=== PATIENT | female | born 1955 | race Hispanic/Latino ===

== ENCOUNTER 2016-10-24 10:02 | Day surgery (SDC) | payer OTHER ==
[~2016-10-24] VITALS: Ht 152.4 cm; Wt 101.3 kg
[~2016-10-24 10:02] MED LIST: CARB100C8 PO; CeFAZolin Inj 2 GM in IV Premix 1 EACH IV ONE; Lactated Ringer's 1,000 ML IV SCH; METF1000 PO; QUET50TA PO; minocycline; turmeric
[2016-10-24] MEDS ORDERED: Propofol 10,000 mCg/mL 20 mL Inj ONE (10:03)
[2016-10-24] MEDS ORDERED: fentaNYL-PF 50 mCg/mL 2 mL Inj ONE (10:03)
[2016-10-24] MEDS ORDERED: Lactated Ringer's 1,000 ML IV ONE (10:12)
[2016-10-24 10:40] VITALS: BP 117/63; PULSE 60; RESP 16; O2SAT 100
--- NOTE | 2016-10-24 12:01 | PCM.HPANE ---
Patient Data Surgeon Admitting Provider: Attending Provider:Doris Schaffer DPM Primary Care Physician:Macho Coffey MD Other Provider:Nichol Elizondo Anesthesia Reason for Visit Left Hallux Valgus Ht/WT & BMI Height (Feet): 5 Height (Inches): 0.00 Weight (Kilograms): 101.3 Body Mass Index 43.00 Allergies Coded Allergies: codeine (Verified Allergy, Unknown, 02/10/16) hydrocodone (Verified Allergy, Unknown, 02/10/16) Past Anesthesia History Anesthesia History: Denies:: Abnormal Airway, Anesthesia Reactions, Difficult Intubation, Fam Anesthesia Reaction, Malignant Hyperthermia Diabetes History Hx Diabetes?: Yes Type of Diabetes: Type II Glycemic Control: Oral Medication Current Bedside Blood Glucose: 88 MRSA MRSA: No Medications Hypertension Medication: No Home Meds Incl Beta Daisy: No Reported Medications [minocycline] No Conflict CheckUnknown Dose DAILY 10/23/16 [turmeric] No Conflict CheckUnknown Dose DAILY 10/23/16 Quetiapine Fumarate (Seroquel)50 Mg Wwrchk36 Mg PO BID Ref 0 10/23/16 Carbamazepine 100 Mg Dyttngc25 Mg PO DAILY 10/23/16 Metformin (Glucophage)1,000 Mg Tablet1,000 Mg PO BID Ref 0 10/23/16 Discontinued Reported Medications Quetiapine Fumarate (Seroquel)50 Mg Yedtmn12 Mg PO HS Ref 0 06/15/16 Warfarin Sodium 5 Mg Tablet5 Mg PO DAILY 30 Days Ref 0 03/16/16 Ketoconazole 15 Gm Cream..g.15 Gm TP prn rash 02/10/16 Carbamazepine 200 Mg Eiihsn445 Mg PO q12hrs 12/03/15 Omeprazole 20 Mg Tablet.dr20 Mg PO DAILY Ref 0 12/03/15 Atorvastatin (Lipitor)20 Mg Wfpnyx42 Mg PO every oth hs Ref 0 12/03/15 Nifedipine ER 90 Mg Tab.er.2490 Mg PO DAILY Ref 0 12/03/15 Levothyroxine 112 Mcg Yuztko377 Mcg PO DAILY For Thyroid Replacement Ref 0 12/03/15 Metformin ER 500 Mg [id number] Mg PO BID Ref 0 12/03/15 History HEENT History: Denies:: Abnormal Airway Cataracts Difficult Intubation Dysphagia Glaucoma Hearing Problem Sinus Problem TMJ Hx of Heart Problems?: Yes Cardiovascular History: Positive for:: Thrombophlebitis (hx DVT - IVC filter remains in place, off anticoag one year now) Denies:: AICD Abdominal Aortic Aneurism Atrial Fibrillation Congestive Heart Failure Heart Murmur Hypertension Irregular Heartbeat Pacemaker Peripheral Vascular Rheumatic Fever Hx of Respiratory Problem?: No Respiratory History: Denies:: Asthma COPD Dyspnea Oxygen Administration Pneumonia Tuberculosis Use of C-PAP Machine (refuses sleep study-recommended ) Use of Inhalers / NEBS Hx Neurologic Problems?: Yes Neurological History: Positive for:: Seizures (normal eeg last august- being tapered off tegretol, last seizure 1994) Denies:: CVA Headaches Multiple Sclerosis Parkinson's Disease Hx of GI Problems?: No Gastrointestinal History: Denies:: Cirrhosis Gall Bladder Disease Gastroesphageal Reflux Gastrointestinal Bleeding Heartburn Hepatitis Hiatal Hernia Liver Disease Rectal Bleeding Hx of Problems?: No Genitourinary History: Denies:: Kidney Stones Urinary Tract Infection Female Hx: Denies:: Currently Problems with Breasts? Skin History: Denies:: History Skin Disorders? Pressure Ulcers Hx Musculoskeletal Problems?: Yes Musculoskeletal History: Positive for:: Degenerative Joint Joint Replacement (left shoulder) Musculoskeletal Trauma (left foot current admission problem) Osteoarthritis (left knee- is difficult to straighten) Denies:: Back Injury Fibromyalgia Hx of Psycho/Social Problems?: Yes Psycho Social History: Positive for:: Bipolar Disorder Hx Depression Hx Surgeries?: Yes (left elbow, left shoulder) Hx Any Other Health Problems?: Yes Other History: Denies:: Cancer Thyroid Disease History Blood Transfusions: Positive for:: Accept Blood Products? Denies:: Blood Transfusions Hx Diabetes: YesBedside Blood Glucose: 88 Hx Alcohol Use: NoHx Substance Use: No Smoking Status: Former Smoker Stop/Bang S-Snoring: Do You Snore Loudly: No T-Tired: feel tired, fatigued: No O-Obsered: Observed not breath: No P-Blood Pressure: treated: No B- Body Mass Index > 35 kg/m2: Yes A- Age over 50: Yes N- Neck Large Circumference: Yes G- Gender Male: No RENUKA Total Score: 3 Risk Assessment Category Category 1A: Patient has history of documented sleep apnea, and HAS NOT received any narcotic, sedative or anesthesia administration during this stay. Category 1B: Patient has history of documented sleep apnea, and HAS received any narcotic , sedative or anesthesia administration during this stay Category 2: Patient has SUSPECTED Obstructive Sleep Apnea, and HAS received any narcotic , sedative or anesthesia administration during this stay. Category 3: Patient has SUSPECTED Obstructive Sleep Apnea and HAS NOT received narcotic, sedative or anesthesia administration during this stay. Category 4: Outpatient in Procedural Areas with known sleep apnea or who screen positive for High Risk via the STOP/BANG questionnaire. Exam Exam Vital Signs Vital Signs Date Time Temp Pulse Resp B/P Pulse Ox O2 Delivery O2 Flow Rate FiO2 10/24/16 10:40 36.2 60 16 117/63 100 Room Air General Appearance: Alert, Oriented X3, Cooperative HEENT/AIRWAY: MP 2 Lungs: Clear to Auscultation Heart: Exam Unremarkable Meds/Labs/Diagnostics Admission Meds Current Medications Lactated Ringer's (Lr) 1,000 ml @ ud STK-MED ONCE IV Last administered on 10/24t 10:12; Start 10/24/16 at 10:12; Stop 10/24/16 at 10:13; Status DC Bedside Blood Glucose: 88 Plan Impression Patient chart reviewed, patient interviewed and anesthestic plan with risks, benefits, and alternatives discussed, and informed consent obtained. NPO Status: 10/23 at 1800 ASA Physical Status: ASA3 Severe Disease Anesthetic Plan: MAC Bene/Risks/Altern/Consents: Yes HP Complete Prior to Induction: Yes Jewel Quintana MD Oct 24, 2016 12:01
[2016-10-24] MEDS ORDERED: Lidocaine 2%-Epi 1:100,000 20 mL Inj INFILTRATE ONE (12:30)
[2016-10-24] MEDS ORDERED: Lactated Ringer's 1,000 ML IV SCH (12:33)
[2016-10-24] MEDS ORDERED: Lactated Ringer's 500 ML IV PRN (12:33)
[2016-10-24] MEDS ORDERED: Phenylephrine 10,000 mCg/mL Inj IVPUSH PRN (12:35)
[2016-10-24] MEDS ORDERED: Dexamethasone 4 mg/mL Inj IVPUSH PRN (12:35)
[2016-10-24] MEDS ORDERED: EPHEDrine Sulfate 50 mg/mL Inj IVPUSH PRN (12:35)
[2016-10-24] MEDS ORDERED: Ondansetron 2 mg/mL 2 mL Inj IVPUSH PRN (12:35)
[2016-10-24] MEDS ORDERED: MetoCLOpramide 5 mg/mL 2 mL Inj IVPUSH PRN (12:35)
[2016-10-24] MEDS ORDERED: HYDROmorphone 1 mg/mL Inj IVPUSH PRN (12:35)
[2016-10-24] MEDS ORDERED: fentaNYL-PF 50 mCg/mL 2 mL Inj IVPUSH PRN (12:35)
[2016-10-24] MEDS ORDERED: Bupivacaine-MPF 0.5% 30 mL Inj INFILTRATE ONE (12:49)
[2016-10-24 13:40] VITALS: BP 123/62; PULSE 84; RESP 15; O2SAT 100
--- NOTE | 2016-10-24 13:57 | PCM.PODPO ---
Podiatry Operative Report Date of Service: Oct 24, 2016 Date of Service Oct 24, 2016 Pre Operative Diagnosis Recurrent left hallux valgus deformity Post Operative Diagnosis Recurrent left hallux valgus deformity Joint disease, unspecified, left first metatarsophalangeal joint Procedure Left Thomas bunionectomy and first metatarsal head biopsy Surgeon Surgeon: Doris Schaffer DPM Assistants: None Indication for Procedure This patient has had a recurrent hallux valgus deformity with complete weakness of the abductor hallucis muscle and subluxation at the first metatarsophalangeal joint, interfering with shoe gear and causing pain on the adjacent under lapping second toe. Findings Black discolored subchondral plate in the first metatarsal head and proximal phalangeal base Adequate correction of the transverse deformity of the great toe. Complete atrophy of medial capsular structures and abductor hallucis muscle. Details of Procedure The patient was identified in the preoperative holding area and brought back to the operating room. She was placed on the operating table in supine position. The timeout protocol was completed and the patient's site of surgery identified as left foot. IV sedation was initiated, the left foot anesthetized in the local block, then prepped and draped in usual aseptic manner. An incision was made dorsomedially over the previous existing scar, reflected off of the first metatarsal head and proximal phalangeal base. Immediately, the cartilaginous appearance was noted to be abnormal. A section of the first metatarsal head was sent for pathology. The underlying subchondral bone bled normally. I proceeded with a transverse osteotomy across the base of the proximal phalanx and removed a medially based wedge, reapproximated the osteotomy and fixated it with a 28-gauge monofilament wire. The bone stock was very poor. However, the wire fixation was stable. The extensor hallucis longus tendon was found to be laterally subluxed off of the first interphalangeal and first metatarsophalangeal joint. Irrigation was performed with normal saline, capsular structures tightened medially and closed with medialization of the extensor hallucis longus tendon. A splinting bandage was applied to hold the toe medially. Approximately 1 cm of space was present between the first and second toes after surgery. Dressing consisted of sterile silk, 4 x 4 gauze, Kerlix, and Coban. The patient was weaned off of anesthesia and taken to day surgery with vital signs stable and the vascular status to the left foot appearing intact. Grafts, Implants: Implants-See Implant Record Complications There were no periprocedural complications identified. Condition Stable Anesthetic Administered: MAC Drains: None Catheters: None Output, Estimated Blood Loss: 5 (ml) Blood Admin during surgery: No Surgical Cast or Splint: Post-op Boot Surgical Specimen Removed: Yes Specimen sent to Pathology: Yes Surgical Specimen description: Osteochondral fragment resected off of the first metatarsal head Post Operative Plan The patient will be weightbearing as tolerated in a postoperative shoe. She is to keep her dressing clean, dry, and intact until her follow-up visit with me next week. She has oral pain medication at home. Doris Schaffer DPM Oct 24, 2016 13:57
[2016-10-24] MEDS ORDERED: HYDR2TAB27 PO (14:04)
[2016-10-24 14:45] VITALS: BP 127/88; PULSE 68; RESP 16; O2SAT 98
--- NOTE | 2016-10-24 15:04 | PCM.ANEP1 ---
Post Anesthesia Phase 1 PACU Phase 1 Assessment Date of Service: Oct 24, 2016 Vital Signs Vital Signs Date Time Temp Pulse Resp B/P Pulse Ox O2 Delivery O2 Flow Rate FiO2 10/24/16 13:40 36.5 84 15 123/62 100 Room Air 10/24/16 10:40 36.2 60 16 117/63 100 Room Air Anesthetic Administered: MAC Level of Alertness: Awake, talking TOBAR's with Equal Strength: Yes Pain: No Nausea or Vomiting: No Oxygen Delivery: Room Air Lungs: Clear to Auscultation Jewel Quintana MD Oct 24, 2016 15:04
--- NOTE | 2016-10-24 15:05 | PCM.ANEP2 ---
Post Anesthesia Evaluation ASA/CMS Post Anesthesia VS in Patient's Normal Range?: Yes Resp Stable; Airway Patent?: Yes CV Function & Hydration Stable: Yes Mental Status Recovered?: Yes Pain control Satisfactory?: Yes N/V Control Satisfactory?: Yes Jewel Quintana MD Oct 24, 2016 15:05
--- NOTE | 2016-10-30 12:15 | PATH ---
SURGICAL PATHOLOGY Attending Physician:Doris Schaffer CASE STATUS: Signed Out PATIENT NAME: PARENT, JAM Mitchell PID: [id number] : 1955 DATE COLLECTED:10/24/2016 00:00 SPECIMEN: Bone, Biopsy CLINICAL HISTORY: LEFT HALLUX VALGUS 1). OSTEOCHONDRAL FRAGMENT 1ST METATARSAL HEAD LEFT FOOT FINAL DIAGNOSIS: Osteochondral Fragment, First Metatarsal Head, Left Foot: Osteocartilaginous tissue with no evidence of malignancy. ICD10: M20.10 GROSS DESCRIPTION: The specimen is received in formalin, labeled with the patient's name, sublabeled as osteochondral fragment 1st metatarsal head L foot and consists of an unoriented piece of apparent bone (1.5 x 1.0 x 0.4 cm). The exterior surface is pale lopez smooth and shiny. The cut surface is meek and porous. The specimen is hard and cannot be sliced with a scalpel. Ink code: black-resection margin. Section code: (A) piece of bone, serially sectioned, represented. Note: The bone sections have been decalcified. 10/26/16 ICD-9 CODES: CPT CODES: 1: 13755, 02743 Electronically Signed Out Lm Landon MD [facility] Pathology [facility] [address], [place] [address] Technical component performed at [facility], [address] [place] [address] Ave[address], [place], [address]
== END 2016-10-24 23:59 | disposition home or self-care (01) ==
LOC: SAS 10:02
PROVIDERS: ATTEND Podiatrist
DX: M20.12 Hallux valgus (acquired), left foot (principal); M19.072 Primary osteoarthritis, left ankle and foot; E11.40 Type 2 diabetes mellitus with diabetic neuropathy, unspecified; G89.4 Chronic pain syndrome; F31.9 Bipolar disorder, unspecified; F11.20 Opioid dependence, uncomplicated; E03.9 Hypothyroidism, unspecified; E78.00 Pure hypercholesterolemia, unspecified; E66.01 Morbid (severe) obesity due to excess calories; Z68.41 Body mass index [BMI] 40.0-44.9, adult; Z86.718 Personal history of other venous thrombosis and embolism; Z87.891 Personal history of nicotine dependence; Z79.84 Long term (current) use of oral hypoglycemic drugs; Z95.828 Presence of other vascular implants and grafts
CPT/HCPCS: 28298; J0690; J2250; J3010; J7120